=== PATIENT | male | born 1990 | race African-American/Black ===

== ENCOUNTER 2018-05-18 20:30 | Emergency (ER) | payer SELFPAY ==
[2018-05-18 20:32] VITALS: BP 134/113; PULSE 90; RESP 15; TEMP 36.5; O2SAT 99; BMI 34.7
--- NOTE | 2018-05-18 21:11 | ED.DCSUM_ITS ---
- ER Visit Summary Date of Service: 05/18/18 Chief Complaint: Bite History of Present Illness: The patient is a 27 M reports a possible bite to his left buttock. He noticed this suddenly yesterday. The area has been painful. Better with naproxen. No other associated symptoms. Physical Examination: Patient has a small area about the size of a dime over his left buttock. Slightly indurated and erythematous. There are 3 tiny vesicles forming. No other pertinent findings. Test Results: None indicated. Emergency Department Course and Treatment: Patient may or may not have had a bite. This may be an early infection. Patient does not have risk factor for herpes. Does not appear to be shingles. We will try antibiotics first. Patient was advised to follow-up with primary care. He may need a different treatment as this progresses. There is no indication for I&D at this point. Treatment Plan: Clindamycin Disposition: Discharged Impression: 1. Left buttock cellulitis This note was generated with [employer] dictation software. It may contain incorrect words, spelling, and punctuation that were not noted in review of the chart prior to signing ED Disposition - Plan for ED Patient: Chief Complaint: Bite Referrals: Care Physician,No Primary [Primary Care Provider] -
--- NOTE | 2018-05-18 21:11 | ED.DEP ---
ED Disposition - Plan for ED Patient: Chief Complaint: Bite Instructions: ED Bite Spider Non Poisonous Prescriptions: Naproxen [Naprosyn] 500 mg PO BID PRN #20 tab Clindamycin [Cleocin] 300 mg PO TID 7 Days #42 cap Referrals: Rabia Hester DO [STAFF PHYSICIAN] -
[2018-05-18] MEDS: Clindamycin HCl 150 MG Capsule 300 MG PO (21:21)
== END 2018-05-18 21:44 | disposition home or self-care (01) ==
PROVIDERS: Emergency Provider Emergency Medicine
DX: L03.317 Cellulitis of buttock (principal)
CPT/HCPCS: 99283

== ENCOUNTER 2021-11-16 23:34 | Emergency (ER) | payer SELFPAY ==
[2021-11-16 23:34] VITALS: BP 187/114; PULSE 112; RESP 18; TEMP 35.9; O2SAT 100; BMI 33.9
--- NOTE | 2021-11-17 00:11 | EX.ED.VIS.EY ---
HPI History of Present Illness Chief Complaint: Eye Problem Narrative Narrative: Patient is a 31-year-old male who wears contact lenses. He states he went out partying on Wednesday evening and when he returned home Wednesday around 8 AM went to take his contacts out. He states he believes that he could not get his contact out of the right eye and throughout the day has had increasing redness pain and swelling. As he believes he has a retained contact lens he presents for evaluation. PFSH PFSH Home Medications ciprofloxacin HCl 2 drp RIGHT EYE 4X/DAY 7 Days #10 ml 11/17/21 [Rx Last Taken Unknown] hydrocodone-acetaminophen 1 tab PO Q6H PRN 3 Days #12 tab 11/17/21 [Rx Last Taken Unknown] Allergy/AdvReac Type Severity Reaction Status Date / Time Penicillins Allergy Unknown Verified 11/16/21 23:39 aspirin AdvReac Vomiting Verified 11/16/21 23:39 Social History Smoking Status: Current every day smoker tobacco type: cigarettes ROS ROS ED Constitutional Constitutional ED: Denies chills or fever(s) Eyes Eyes: Reports other Details: Positive right eye pain redness and discharge ; Denies blurry vision ENT ENT ED: Denies sore throat Cardiovascular Cardiovascular: Denies chest pain Respiratory/Chest Respiratory/Chest: Denies cough or dyspnea Gastrointestinal Gastrointestinal: Denies abdominal pain, diarrhea, nausea or vomiting Genitourinary Genitourinary ED: Denies dysuria Musculoskeletal Musculoskeletal: Denies myalgias Integumentary Denies rash Neurologic Neurologic: Denies headache(s) Hematologic/Lymphatic Hematologic/Lymphatic: Denies easy bleeding or easy bruising EXAM Physical Exam Const Vital Signs: 11/16/21 23:34 Temperature 96.6 F L Temperature Source Temporal Pulse Rate 112 H Respiratory Rate 18 Blood Pressure 187/114 H Blood Pressure Mean 138 Pulse Ox 100 Oxygen Delivery Method Room Air Positive well nourished, well developed and obese General Appearance ED: well developed Nutritional Appearance: obese HEENT Reports moist mucous membranes atraumatic Eyes PERRL and EOMs intact bilaterally Eyes Narrative: Pupils are equal reactive to light and accommodation extraocular muscles are intact. Patient has scleral injection of the right eye along with some conjunctival fullness. The upper lid was everted there is no obvious foreign body. Wood's lamp examination shows a corneal abrasion over top of the iris around the 3 and 9:00 positions with negative Geetha sign. There is no obvious retained contact lens. Neck supple Resp normal respiratory effort and clear to auscultation bilaterally Cardio regular rate and regular rhythm Extremity normal to inspection Neuro oriented x3 and CN's II-XII intact bilaterally Sensorium / Orientation: alert Psych mental status grossly normal Skin no rashes or lesions noted Lesions: no lesions Rashes: no rashes MDM MDM MDM Narrative Medical decision making narrative: Patient presented to the ER hypertensive but I felt this was related to pain with his eye complaint and as he had no other symptoms did not feel the need to work this up. The patient believes he had a retained contact lens but despite inverting the upper eyelid exposing the lower conjunctiva and performing examination with fluorescein dye I cannot find any retained foreign body. There was note of 2 small corneal abrasions over top the iris which would correlate with him removing his contact. Therefore at this time patient has a corneal abrasion without foreign body. He has no signs of systemic infection or globe rupture so there is no need for further work-up. Patient replaced on Cipro eyedrops because of his corneal abrasion and contact lens use but is otherwise safe for discharge Discharge Plan Triage Chief Complaint: Eye Problem ED Provider: Sherwin Su Dx/Rx/DC Orders Clinical Impression: Corneal abrasion of right eye due to contact lens Instructions: ED Corneal Abrasion Prescriptions: New ciprofloxacin HCl 0.3 % drops 2 drp RIGHT EYE 4X/DAY 7 Days Qty: 10 RF: 0 hydrocodone-acetaminophen 5-325 mg tablet 1 tab PO Q6H PRN (Reason: pain) 3 Days Qty: 12 RF: 0 Primary Care Provider: Care Physician,No Primary Referrals: Bhaskar Horan MD [STAFF PHYSICIAN] - 3-5 Days if not improving Care Physician,No Primary [Primary Care Provider] - Activity Restrictions/Additional Instructions: Please do not wear your contacts for the next 7 days and follow-up with ophthalmology or return to the ER should you have any further concerns Disposition Disposition: Home, Self Care Discharge Date/Time: 11/17/21 02:24
[2021-11-17 01:57] VITALS: PULSE 88; RESP 16; O2SAT 97
[2021-11-17] MEDS: Ciprofloxacin 0.3% 2.5ml Bottle 2 DRP RIGHT EYE (02:14)
[2021-11-17] MEDS: Tetracaine 0.5% Ophthalmic Bottle 1 DRP RIGHT EYE (02:18)
[2021-11-17] MEDS: Fluorescein 1 MG STRIP 1 STRIP RIGHT EYE (02:18)
== END 2021-11-17 02:24 | disposition home or self-care (01) ==
PROVIDERS: Emergency Provider Emergency Medicine; Visit Provider Emergency Medicine
DX: S05.01XA Injury of conjunctiva and corneal abrasion without foreign body, right eye, initial encounter (principal); F17.210 Nicotine dependence, cigarettes, uncomplicated; Z97.3 Presence of spectacles and contact lenses; X58.XXXA Exposure to other specified factors, initial encounter
CPT/HCPCS: 99283